=== PATIENT | female | born 1980 | race Caucasian/White ===

== ENCOUNTER 2020-11-25 18:12 | Observation (INO) | payer OTHER ==
[2020-11-25] MEDS ORDERED: SODIUM CHLORIDE 0.9% 1,000 ML IV STA (18:58)
[2020-11-25] MEDS ORDERED: MAG HYDROX/AL HYDROX/SIMETH 30 ML, HYOSCYAMINE ELIXIR 10 ML, LIDOCAINE VISCOUS 2% 10 ML PO STA ×3 (19:08)
--- NOTE | 2020-11-25 19:10 | ED ---
General Adult HPI - General Chief complaint: Abdominal Pain Stated complaint: stomach pain. Time Seen by Provider: 11/25/20 18:56 Source: patient Mode of arrival: ambulatory Limitations: no limitations - History of Present Illness Initial comments: Dictation was produced using EpiEP dictation software. please excuse any grammatical, word or spelling errors. This patient was cared for during a federal and state declared state of emergency secondary to Covid 19 Chief Complaint: 39-year-old male presents with epigastric pain History of Present Illness: 39-year-old female she presents to the emergency department for upper abdominal pain nausea for about 4 days. Patient has history of gastroesophageal reflux disease. The other night she swallowed a Benadryl felt like it got stuck in her lower esophagus. She went to bed and wo ke up the next morning with improvement of her symptoms. She went to the urgent clinic who prescribed her with omeprazole and nausea medications. States that the first morning after taking these medications she felt like she was punched in the gut. Denies any diarrhea. She has history of cholecystectomy. Patient has history of reflux. Patient reports she has history of chronic pain. She sees a pain specialist. She gets prescription for Suboxone every 2 weeks. She states her symptoms resolved completely whenever she takes her Suboxone. She didn't take it today so she can feel it and described it to the emergency medicine doctor. The ROS documented in this emergency department record has been reviewed and confirmed by me. Those systems with pertinent positive or negative responses have been documented in the HPI. All other systems are other negative and/or noncontributory. PHYSICAL EXAM: General Impression: Alert and oriented x3, not in acute distress HEENT: Normocephalic atraumatic, extra-ocular movements intact, pupils equal and reactive to light bilaterally, mucous membranes moist. Cardiovascular: Heart regular rate and rhythm Chest: Able to complete full sentences, no retractions, no tachypnea Abdomen: abdomen soft, non-tender, non-distended, no organomegaly Musculoskeletal: Pulses present and equal in all extremities, no peripheral edema Motor: no focal deficits noted Neurological: CN II-XII grossly intact, no focal motor or sensory deficits noted Skin: Intact with no visualized rashes Psych: Normal affect and mood ED course: 39-year-old female presents with epigastric pain, nausea. Vital signs upon arrival are within acceptable limits. Laboratory evaluation obtained. Leukocytosis of 11.7 with a secondary stress. Metabolic panel is unremarkable. Abdominal labs negative. Lipase negative. No elevated liver enzymes. Urinalysis is unremarkable. Patient reevaluated at bedside at approximately 8:15 PM. She states that she has some slight impr ovement of her symptoms with GI cocktail. Patient states that her pain is so severe that she does not feel comfortable going home because she might come back to the emergency department. She states that her pain does get severe. Patient requests to be admitted with GI consultation for possible upper endoscopy. States that she prefer to be admitted observation as opposed to being discharged with a GI referral. Patient be admitted to [facility] EKG interpretation: Ventricular rate 72, normal sinus rhythm,. Interval 1:30, QRS 82, QTC 418. No WI prolongation, no QTC prolongation, no ST or T-wave changes noted. Overall, this EKG is unremarkable - Related Data Allergies Allergy/AdvReac Type Severity Reaction Status Date / Time sulfamethoxazole Allergy Hallucinati Verified 11/25/20 18:51 [From Bactrim] ons trimethoprim [From Bactrim] Allergy Hallucinati Verified 11/25/20 18:51 ons Review of Systems ROS Statement: Those systems with pertinent positive or pertinent negative responses have been documented in the HPI. ROS Other: All systems not noted in ROS Statement are negative. Past Medical History Past Medical History: GERD/Reflux Additional Past Medical History / Comment(s): migraines History of Any Multi-Drug Resistant Organisms: None Reported Past Surgical History: Breast Surgery, Section, Cholecystectomy, Ear Surgery, Tonsillectomy Additional Past Surgical History / Comment(s): jaw surgery,exp lap, Past Psychological History: Anxiety, Depression Smoking Status: Never smoker Past Alcohol Use History: None Reported Past Drug Use History: None Reported General Exam Limitations: no limitations Course Vital Signs 11/25/20 18:48 Temperature 99.0 F Pulse Rate 93 Respiratory 18 Rate Blood Pressure 145/65 O2 Sat by Pulse 99 Oximetry Medical Decision Making - Lab Data Result diagrams: 11/25/20 19:12 11/25/20 19:12 Lab Results 11/25/20 11/25/20 11/25/20 Range/Units 19:12 19:12 19:12 WBC 11.7 H (3.8-10.6) k/uL RBC 4.96 (3.80-5.40) m/uL Hgb 14.6 (11.4-16.0) gm/dL Hct 44.7 (34.0-46.0) % MCV 90.1 (80.0-100.0) fL MCH 29.4 (25.0-35.0) pg MCHC 32.6 (31.0-37.0) g/dL RDW 12.0 (11.5-15.5) % Plt Count 274 (150-450) k/uL MPV 6.8 Neutrophils % 80 % Lymphocytes % 13 % Monocytes % 5 % Eosinophils % 1 % Basophils % 0 % Neutrophils # 9.3 H (1.3-7.7) k/uL Lymphocytes # 1.5 (1.0-4.8) k/uL Monocytes # 0.5 (0-1.0) k/uL Eosinophils # 0.1 (0-0.7) k/uL Basophils # 0.0 (0-0.2) k/uL Sodium (137-145) mmol/L Potassium (3.5-5.1) mmol/L Chloride (98-107) mmol/L Carbon Dioxide (22-30) mmol/L Anion Gap mmol/L BUN (7-17) mg/dL Creatinine (0.52-1.04) mg/dL Est GFR (CKD-EPI)AfAm (>60 ml/min/1.73 sqM) Est GFR (CKD-EPI)NonAf (>60 ml/min/1.73 sqM) Glucose (74-99) mg/dL Calcium (8.4-10.2) mg/dL Total Bilirubin (0.2-1.3) mg/dL AST (14-36) U/L ALT (4-34) U/L Alkaline Phosphatase (38-126) U/L Total Protein (6.3-8.2) g/dL Albumin (3.5-5.0) g/dL Lipase (23-300) U/L Urine Color Yellow Urine Appearance Cloudy H (Clear) Urine pH 5.5 (5.0-8.0) Ur Specific [place] 1.023 (1.001-1.035) Urine Protein 1+ H (Negative) Urine Glucose (UA) Negative (Negative) Urine Ketones Negative (Negative) Urine Blood Small H (Negative) Urine Nitrite Negative (Negative) Urine Bilirubin Negative (Negative) Urine Urobilinogen 3.0 (<2.0) mg/dL Ur Leukocyte Esterase Trace H (Negative) Urine RBC 5 (0-5) /hpf Urine WBC 5 (0-5) /hpf Ur Squamous Epith Cells 29 H (0-4) /hpf Urine Bacteria Many H (None) /hpf Urine Mucus Many H (None) /hpf Urine HCG, Qual Not Detected (Not Detectd) 11/25/20 Range/Units 19:12 WBC (3.8-10.6) k/uL RBC (3.80-5.40) m/uL Hgb (11.4-16.0) gm/dL Hct (34.0-46.0) % MCV (80.0-100.0) fL MCH (25.0-35.0) pg MCHC (31.0-37.0) g/dL RDW (11.5-15.5) % Plt Count (150-450) k/uL MPV Neutrophils % % Lymphocytes % % Monocytes % % Eosinophils % % Basophils % % Neutrophils # (1.3-7.7) k/uL Lymphocytes # (1.0-4.8) k/uL Monocytes # (0-1.0) k/uL Eosinophils # (0-0.7) k/uL Basophils # (0-0.2) k/uL Sodium 139 (137-145) mmol/L Potassium 3.9 (3.5-5.1) mmol/L Chloride 98 (98-107) mmol/L Carbon Dioxide 30 (22-30) mmol/L Anion Gap 11 mmol/L BUN 11 (7-17) mg/dL Creatinine 0.64 (0.52-1.04) mg/dL Est GFR (CKD-EPI)AfAm >90 (>60 ml/min/1.73 sqM) Est GFR (CKD-EPI)NonAf >90 (>60 ml/min/1.73 sqM) Glucose 145 H (74-99) mg/dL Calcium 9.8 (8.4-10.2) mg/dL Total Bilirubin 0.6 (0.2-1.3) mg/dL AST 29 (14-36) U/L ALT 18 (4-34) U/L Alkaline Phosphatase 56 (38-126) U/L Total Protein 8.2 (6.3-8.2) g/dL Albumin 5.0 (3.5-5.0) g/dL Lipase 63 (23-300) U/L Urine Color Urine Appearance (Clear) Urine pH (5.0-8.0) Ur Specific [place] (1.001-1.035) Urine Protein (Negative) Urine Glucose (UA) (Negative) Urine Ketones (Negative) Urine Blood (Negative) Urine Nitrite (Negative) Urine Bilirubin (Negative) Urine Urobilinogen (<2.0) mg/dL Ur Leukocyte Esterase (Negative) Urine RBC (0-5) /hpf Urine WBC (0-5) /hpf Ur Squamous Epith Cells (0-4) /hpf Urine Bacteria (None) /hpf Urine Mucus (None) /hpf Urine HCG, Qual (Not Detectd) Disposition Clinical Impression: Abdominal pain Disposition: ADMITTED IP TO THIS [facility] Condition: Fair Referrals: None,Stated [Primary Care Provider] - 1-2 days Decision Time: 20:47
[2020-11-25 19:25] LABS: Basophils % (A) 0 %; Eosinophils # (A) 0.1 k/uL (0-0.7); Eosinophils % (A) 1 %; HCT 44.7 % (34.0-46.0); HGB 14.6 gm/dL (11.4-16.0); Lymphocytes # (A) 1.5 k/uL (1.0-4.8); Lymphocytes % (A) 13 %; MCH 29.4 pg (25.0-35.0); MCHC 32.6 g/dL (31.0-37.0); MCV 90.1 fL (80.0-100.0); Mean Platelet Volume 6.8; Monocytes # (A) 0.5 k/uL (0-1.0); Monocytes % (A) 5 %; Neutrophils # (A) 9.3 k/uL (1.3-7.7); Neutrophils % (A) 80 %; Platelet Count 274 k/uL (150-450); RBC 4.96 m/uL (3.80-5.40); WBC 11.7 k/uL (3.8-10.6)
[2020-11-25 19:33] LABS: ALT 18 U/L (4-34); AST 29 U/L (14-36); African American GFR (CKD) >90 (>60 ml/min/1.73 sqM); Alkaline Phosphatase 56 U/L (38-126); Anion Gap 11 mmol/L; Appearance,Urine Cloudy (Clear); Bacteria,Urine Many /hpf; Bilirubin,Urine Negative (Negative); Blood Urea Nitrogen 11 mg/dL (7-17); Blood,Urine Small (Negative); Calcium 9.8 mg/dL (8.4-10.2); Carbon Dioxide 30 mmol/L (22-30); Chloride 98 mmol/L (98-107); Color,Urine Yellow; Glucose 145 mg/dL (74-99); Glucose,Urine (UA) Negative (Negative); Ketones,Urine Negative (Negative); Leukocyte Esterase,Urine Trace (Negative); Lipase 63 U/L (23-300); Mucus,Urine Many /hpf; Nitrite,Urine Negative (Negative); Non-African American GFR(CKD) >90 (>60 ml/min/1.73 sqM); PH, Urine 5.5 (5.0-8.0); Potassium 3.9 mmol/L (3.5-5.1); Protein,Urine 1+ (Negative); RBC,Urine 5 /hpf (0-5); Sodium 139 mmol/L (137-145); Specific Gravity,Urine 1.023 (1.001-1.035); Squamous Epithelial Cell,Urine 29 /hpf (0-4); Total Bilirubin 0.6 mg/dL (0.2-1.3); Total Protein 8.2 g/dL (6.3-8.2); WBC,Urine 5 /hpf (0-5)
[2020-11-25] MEDS ORDERED: NALOXONE 0.4 MG/ML 1 ML VIAL IV PRN (20:44)
[2020-11-25] MEDS ORDERED: ACETAMINOPHEN TAB 325 MG TAB PO PRN (20:44)
[2020-11-25] MEDS ORDERED: ONDANSETRON 4 MG/2 ML VIAL IVP PRN (20:44)
--- NOTE | 2020-11-25 20:53 | XR ---
EXAMINATION TYPE: XR abdomen acute w cxr - 3 views DATE OF EXAM: 11/25/2020 COMPARISON: NONE HISTORY: Pain and nausea TECHNIQUE: Upright chest, upright abdomen, and supine abdominal views obtained. FINDINGS: The lungs are clear and the pleural spaces are negative. The bones and soft tissues are unremarkable. No abnormal gas or fluid collections. There is no evidence for pneumoperitoneum. The bowel gas pattern is unremarkable as there is air throughout nondilated small and large bowel. E xcessive colonic stool is seen throughout the colon. No sizeable air fluid levels. No mass effects are seen. No unusual calcifications. IUD noted. IMPRESSION: Constipation pattern.
[2020-11-25] MEDS ORDERED: PANTOPRAZOLE 40 MG/10 ML VIAL IV SCH (21:00)
[2020-11-25] MEDS: SODIUM CHLORIDE 0.9% 1,000 ML IV SCH (21:22)
[2020-11-25] MEDS ORDERED: SUMAtriptan succinate 6 MG/0.5 ML VIAL SQ ONE (23:00)
[2020-11-25] MEDS: PANTOPRAZOLE 40 MG/10 ML VIAL IVP SCH (23:57)
[2020-11-26] MEDS ORDERED: MAG HYDROX/AL HYDROX/SIMETH 30 ML, HYOSCYAMINE ELIXIR 10 ML, LIDOCAINE VISCOUS 2% 10 ML PO PRN ×3
--- NOTE | 2020-11-26 00:38 | P.HPIM ---
History of Present Illness H&P Date: 11/25/20 Chief Complaint: epigastric abd pain 39 year old female with GERD, and migraine headaches patient comes in with 4 day history of worsening epigastric abd pain, all started after she felt a benadryl pill has stuck in her stomach, since then , her epigastric pain radiating to the back is getting worse and worse, 8/10 in severity , feels like someone punching her stomach, eating makes it worse, no vomiting but feels nauseated, no diarrhea but constipated (chronic) last BM 3 days ago , no bleeding. she admits to long history of GERD, never had EGD, and was treated with sucralafate in the past, she takes a lot of Excedrin due to migraine headaches. she went to urgent care few days ago and was given omeprazol, but with no benefit. she claims that pain goes away when she takes her subaxone that she has been taking for many years, prescribed by her psychiatrist. she also reports history of high blood pressure that is not treated. otherwise she claims to be in good health overall. blood work in the ED unremarkable. lipase negative denies smoking, illicit drugs, or alcohol intake Review of Systems Pertinent positives as noted in HPI. All other systems were reviewed and are negative Past Medical History Past Medical History: GERD/Reflux Additional Past Medical History / Comment(s): migraines History of Any Multi-Drug Resistant Organisms: None Reported Past Surgical History: Breast Surgery, Section, Cholecystectomy, Ear Surgery, Tonsillectomy Additional Past Surgical History / Comment(s): jaw surgery,exp lap, Past Psychological History: Anxiety, Depression Smoking Status: Never smoker Past Alcohol Use History: None Reported Past Drug Use History: None Reported - Past Family History Family Family Medical History: No Reported History Medications and Allergies Home Medications Medication Instructions Recorded Confirmed Type Aspirin/Acetaminophen/Caffeine 2 tab PO Q4H PRN 11/25/20 11/25/20 History [Excedrin Migraine Caplet] Buprenorphine HCl/Naloxone HCl 1 film SL BID 11/25/20 11/25/20 History [Buprenorp-Nalox 8-2 mg Sl Film] Citalopram Hydrobromide [CeleXA] 20 mg PO DAILY 11/25/20 11/25/20 History Ofloxacin 0.3% Otic Soln [Floxin 5 drops RIGHT EAR DAILY 11/25/20 11/25/20 History 0.3% Otic Soln] clonazePAM 1 mg PO TID 11/25/20 11/25/20 History diphenhydrAMINE HCL [Benadryl] 25 mg PO HS PRN 11/25/20 11/25/20 History lamoTRIgine 200 mg PO DAILY 11/25/20 11/25/20 History Allergies Allergy/AdvReac Type Severity Reaction Status Date / Time ondansetron [From Zofran] Allergy Rash/Hives Verified 11/25/20 21:15 sulfamethoxazole Allergy Hallucinati Verified 11/25/20 21:08 [From Bactrim] ons trimethoprim [From Bactrim] Allergy Hallucinati Verified 11/25/20 21:08 ons Physical Exam Vitals: Vital Signs Temp Pulse Resp BP Pulse Ox 11/25/20 21:23 98.9 F 89 18 140/67 98 11/25/20 18:48 99.0 F 93 18 145/65 99 Intake and Output 11/25/20 11/25/20 11/25/20 06:59 14:59 22:59 Other: Weight 63.049 kg Constitutional: No acute distress, conversant, pleasant Eyes: Anicteric sclerae, moist conjunctiva, Pupils equal round reactive to light ENMT: NC/AT Oropharynx clear, no erythema, or exudates Neck: Supple, FROM, no masses, or JVD No carotid bruits No thyromegaly Lungs: Clear to auscultation Clear to percussion Normal respiratory effort, no accessory muscle use Cardiovascular: Heart regular in rate and rhythm, No murmurs, gallops, or rubs No peripheral edema Abdominal: Soft tenderness to palpation of the epigastric region , voluntary guarding , no rebound or rigidity Abdomen moving with respiration Normoactive bowel sounds No hepatomegaly, No splenomegaly No palpable mass umbilical hernia Skin: Normal temperature, tone, texture, turgor No induration No subcutaneous nodules No rash, lesions No ulcers Extremities: No digital cyanosis No clubbing Pedal pulses intact and symmetrical Radial pulses intact and symmetrical No calf tenderness Psychiatric: Alert and oriented to person, place and time Appropriate affect fair judgement Neuro Muscles Strength 5/5 in all 4 extremities Sensation to light touch grossly present throughout Cranial nerves II-XII grossly intact No focal sensory deficits Lymphatics: no palpable cervical or supraclavicular , or inguinal lymph nodes Results CBC & Chem 7: 11/25/20 19:12 11/25/20 19:12 Labs: Abnormal Lab Results - Last 24 Hours (Table) 11/25/20 11/25/20 11/25/20 Range/Units 19:12 19:12 19:12 WBC 11.7 H (3.8-10.6) k/uL Neutrophils # 9.3 H (1.3-7.7) k/uL Glucose 145 H (74-99) mg/dL Urine Appearance Cloudy H (Clear) Urine Protein 1+ H (Negative) Urine Blood Small H (Negative) Ur Leukocyte Esterase Trace H (Negative) Ur Squamous Epith Cells 29 H (0-4) /hpf Urine Bacteria Many H (None) /hpf Urine Mucus Many H (None) /hpf Assessment and Plan Assessment: epigastric abd pain , suspected PUD GERD chronic hypertension untreated plan bowel rest GI consult lipase wnl PPI GI cocktail resume subaxone avoid NSAID sumatriptan for migraine normal saline IVF hydration CODE STATUS:full code DVT prophylaxis: mecanical Discussed with: Patient, ER, RN Anticipated length of stay < than [address]: home A total of 65 minutes was spent on the care of this complex patient more than 50% of the time was spent in counseling and care coordination.
[2020-11-26] MEDS: clonazePAM 1 MG TAB PO SCH ×4 (00:42→21:44)
[2020-11-26] MEDS ORDERED: ACETAMINOPHEN IV (For NPO) 1,000 MG in EMPTY BAG 1 BAG IVPB ONE (03:00)
[2020-11-26] MEDS ORDERED: MORPHINE SULFATE 4 MG/ML SYRINGE IVP PRN (03:08)
[2020-11-26] MEDS ORDERED: MORPHINE SULFATE 2 MG/ML SYRINGE IVP PRN (03:13)
[2020-11-26] MEDS: lamoTRIgine 100 MG TAB PO SCH (09:13)
[2020-11-26] MEDS: PANTOPRAZOLE 40 MG/10 ML VIAL IVP SCH ×2 (09:13→21:44)
[2020-11-26] MEDS: CITALOPRAM HYDROBROMIDE 20 MG TAB PO SCH (09:14)
[2020-11-26] MEDS: SODIUM CHLORIDE 0.9% 1,000 ML IV SCH ×3 (09:14→21:49)
[2020-11-26] MEDS: NALOXONE HCL SUBLINGUAL SCH ×2 (09:47→21:48)
[2020-11-26] MEDS: BUPRENORPHINE HCL SUBLINGUAL SCH ×2 (09:47→21:48)
[2020-11-26] MEDS: [UNRECOGNIZED DRUG - OTHER] SUBLINGUAL SCH ×2 (09:47→21:48)
[2020-11-26] MEDS: BUTALB/APAP/CAFF 50-325-40MG TAB PO PRN ×2 (10:15→16:18)
[2020-11-26] MEDS ORDERED: diphenhydrAMINE 25 MG CAP PO PRN (11:02)
--- NOTE | 2020-11-26 15:52 | P.PN ---
Subjective Progress Note Date: 11/26/20 Principal diagnosis: Epigastric pain Patient still having pain in the epigastric area, she is still having nausea but no vomiting. No fevers or chills. Objective - Vital Signs Vital signs: Vital Signs Temp 98.2 F 11/26/20 15:00 Pulse 69 11/26/20 15:00 Resp 18 11/26/20 15:00 BP 106/69 11/26/20 15:00 Pulse Ox 95 11/26/20 15:00 Intake & Output 11/25/20 11/26/20 11/26/20 18:59 06:59 18:59 Weight 63.049 kg 63.049 kg Other: # Voids 2 - Exam Constitutional: No acute distress, conversant, pleasant Eyes:Anicteric sclerae, moist conjunctiva, no lid-lag, PERRLA, ENMT: Oropharynx clear, no erythema, exudates Neck: Supple, FROM, no masses, or JVD, No carotid bruits, No thyromegaly Lungs: Clear to auscultation, Clear to percussion, Normal respiratory effort, no accessory muscle use Cardiovascular: Heart regular in rate and rhythm, No murmurs, gallops, or rubs, No peripheral edema Abdominal: Soft, epigastric tenderness, no guarding, rebound or rigidity, Normoactive bowel sounds, No hepatomegaly, No splenomegaly, No palpable mass Skin: Normal temperature, tone, texture, turgor, no induration, No subcutaneous nodules, No rash, lesions, No ulcers Extremities: No digital cyanosis, No clubbing, Pedal pulses intact and symmetrical, Radial pulses intact and symmetrical, No calf tenderness Psychiatric: Alert and oriented to person, place and time, appropriate affect, intact judgement Neuro: Muscles Strength 5/5 in all 4 extremities, Sensation to light touch grossly present throughout, Cranial nerves II-XII grossly intact, no focal sensory deficits - Labs CBC & Chem 7: 11/25/20 19:12 11/25/20 19:12 Labs: Abnormal Lab Results - Last 24 Hours (Table) 11/25/20 11/25/20 11/25/20 Range/Units 19:12 19:12 19:12 WBC 11.7 H (3.8-10.6) k/uL Neutrophils # 9.3 H (1.3-7.7) k/uL Glucose 145 H (74-99) mg/dL Urine Appearance Cloudy H (Clear) Urine Protein 1+ H (Negative) Urine Blood Small H (Negative) Ur Leukocyte Esterase Trace H (Negative) Ur Squamous Epith Cells 29 H (0-4) /hpf Urine Bacteria Many H (None) /hpf Urine Mucus Many H (None) /hpf Assessment and Plan Plan: Epigastric abd pain , likely pill-induced esophagitis, rule out PUD Currently nothing by mouth for EGD this a.m. by GI Continue PPI GI cocktail resume subaxone avoid NSAID Fioricet and sumatriptan for migraine as needed, patient tried multiple medications for it in the past, defer management to outpatient basis normal saline IVF hydration GERD chronic hypertension untreated Patient advised to follow-up with her primary care physician as untreated high blood pressure can cause headaches CODE STATUS:full code DVT prophylaxis: mecanical Discussed with: Patient, RN Anticipated discharge tomorrow Anticipated discharge place: home A total of 25 minutes was spent on the care of this complex patient more than 50% of the time was spent in counseling and care coordination.
[2020-11-26] MEDS: SUCRALFATE 1 GM TAB PO SCH ×2 (17:48→21:44)
[2020-11-26 21:43] VITALS: RESP 16
--- NOTE | 2020-11-26 22:59 | CONS ---
CONSULTATION DATE OF DICTATION: November 26, 2020. REQUESTING PHYSICIAN: Dr. Woodruff. REASON FOR CONSULTATION: Severe epigastric pain for the last 5 days duration. HISTORY OF PRESENT ILLNESS: The patient is a 39-year-old pleasant white female admitted to the hospital with severe epigastric pain for the last 4 days duration. The patient states that she has been taking excessive amount of Excedrin for the last few months for severe migraine headaches. She is still having this pain in the epigastric area radiating to the back associated with some nausea but no emesis. The pain continued to progressively get worse and hence came to the emergency room and subsequently admitted to the hospital for further evaluation. She denies similar symptoms in the past. She reports no prior history of peptic ulcer disease. In the emergency room, she had acute abdominal series that have been negative and labs were all within normal limits. PAST MEDICAL HISTORY: Significant for chronic migraine headaches, gastroesophageal reflux disease. PAST SURGICAL HISTORY: Breast surgery, , cholecystectomy, ear surgery and tonsillectomy. SOCIAL HISTORY: No smoking. No alcohol use. FAMILY HISTORY: Unremarkable. MEDICATIONS: Medications at home: Benadryl, Excedrin migraine, Lamictal, Clonazepam, citalopram, buprenorphine. ALLERGIES: ZOFRAN, BACTRIM. REVIEW OF SYSTEMS: CARDIOPULMONARY: No chest pain or shortness of breath. Genitourinary: No dysuria or hematuria. MUSCULOSKELETAL unremarkable. Skin unremarkable. Endocrine unremarkable. Neurology: Severe headaches. Psychiatric: History of anxiety and depression. ENT/VISION: Unremarkable. CONSTITUTIONAL: No recent weight loss. No fever, chills, night sweats. HEMATOLOGY: Unremarkable. PHYSICAL EXAMINATION: She appears comfortable. No apparent distress. Vital signs stable. Blood pressure 106/69, pulse rate 69, temperature 98.2. HEENT examination unremarkable. Conjunctivae pink. Sclerae anicteric. Oral cavity no lesions. Neck no JVD or lymph node enlargement. Chest was clear to auscultation. HEART: Regular rate and rhythm. ABDOMEN: Soft. Bowel sounds are positive. Severe tenderness in the epigastric area. Rest of the abdomen was benign. Extremities: No pedal edema. Skin no rashes. NEUROLOGIC: Alert and oriented x3. No focal deficits. LABS: From yesterday WBC 11.7, hemoglobin 14.6, platelets normal. Rest of the labs are within normal limits. AST/ALT and T-bilirubin and alkaline phosphatase are normal. Urinalysis showed small amount of blood in the urine. IMPRESSION: 1. Acute onset of severe epigastric pain for the last 4 days duration in this patient who has been taking excessive amounts of Excedrin for chronic migraine headaches for the last several months. No prior history of peptic ulcer disease. She does have history of gastroesophageal reflux disease and does not take any medications for it. Most likely we are dealing with peptic ulcer disease, but other upper gastrointestinal etiology needs to be excluded. She has history of cholecystectomy in the past. 2. Chronic migraine headaches. 3. History of anxiety and depression. RECOMMENDATIONS: 1. Continue with Protonix 40 mg twice daily. 2. Start her on clear liquid diet. 3. Carafate 1 gram 4 times daily. 4. We will proceed with EGD tomorrow. Discussed with the patient risks, benefits and complications of the procedure and she is agreeable to it. Thank you for this consultation. KAMINI / HOMER: [id number] /
[2020-11-27] MEDS: SODIUM CHLORIDE 0.9% 1,000 ML IV SCH (04:01)
[2020-11-27] MEDS ORDERED: IV FLUID CONTINUATION 700 ML IV ONE (07:25)
[2020-11-27] MEDS ORDERED: MIDAZOLAM 2 MG/2 ML VIAL ONE (07:26)
[2020-11-27] MEDS ORDERED: LIDOCAINE 1% INJ 10MG/ML (20 ML MDV) ONE (07:26)
[2020-11-27] MEDS ORDERED: PROPOFOL 10 MG/ML 20 ML VIAL IV ONE (07:26)
--- NOTE | 2020-11-27 07:40 | P.PCN ---
Date of Procedure: 11/27/20 Procedure(s) Performed: BRIEF HISTORY: Patient is a 39-year-old, pleasant, female scheduled for an upper endoscopy as a part of evaluation of severe epigastric pain for the last 5 days duration.. PROCEDURE PERFORMED: Esophagogastroduodenoscopy with biopsy. PREOPERATIVE DIAGNOSIS: Severe epigastric pain for the last 4 days duration.. IV sedation per anesthesia. PROCEDURE: After informed consent was obtained, the patient was brought into the endoscopy unit. IV sedation was administered by Anesthesia under continuous monitoring. Initially the Olympus GIF-140 video endoscope was inserted into the mouth. Esophagus intubated without any difficulty. It was gradually advanced into the stomach and duodenum and carefully examined. The bulb and the second part of the duodenum appeared normal. The scope at this time was withdrawn to the stomach, adequately insufflated with air, and upon careful examination, mucosa of the antrum, had mild gastritis and biopsies were done from here. No evidence of peptic ulcer disease. Mucosa of the body, cardia and the fundus appeared normal. The scope was then withdrawn into the esophagus. The GE junction was located at 39 cm from the incisors. There was a small mucosal tear noted at the GE junction. There were 2 superficial erosions at the GE junction consistent with LA grade B reflux esophagitis rest of the biopsies were done from the distal esophagus The esophagus appeared normal. Biopsies were done from the distal esophagus and the patient tolerated the procedure well. IMPRESSION: 1. Antral gastritis. 2. No evidence of peptic ulcer disease 3. 2 superficial erosions at the GE junction consistent with LA grade B reflux esophagitis. RECOMMENDATIONS: The findings of this examination were discussed with the patient . She'll continue Protonix 40 mg twice daily and Carafate 1 g 4 times daily. Diet will be advanced as tolerated.
[2020-11-27 09:19] VITALS: BP 136/85; PULSE 69; TEMP 97.4
[2020-11-27] MEDS: PANTOPRAZOLE 40 MG/10 ML VIAL IVP SCH (09:46)
[2020-11-27] MEDS: CITALOPRAM HYDROBROMIDE 20 MG TAB PO SCH (09:47)
[2020-11-27] MEDS: SUCRALFATE 1 GM TAB PO SCH (09:47)
[2020-11-27] MEDS: clonazePAM 1 MG TAB PO SCH (09:48)
[2020-11-27] MEDS: lamoTRIgine 100 MG TAB PO SCH (09:48)
--- NOTE | 2020-11-27 09:53 | P.DS ---
Providers Date of admission: 11/25/20 20:45 Expected date of discharge: 11/27/20 Attending physician: Eliu Woodruff MD Consults: 11/25/20 20:39 Consult Physician Routine Consulting Provider: Nicolasa Arrington Consult Reason/Comments: epigastric pain Do you want consulting provider notified?: Yes Primary care physician: Stated None Hospital Course: 39 year old female with GERD, and migraine headaches presented to the hospital due to 4 day history of worsening epigastric abd pain, that started after she swallowed some benadryl without drinking much water afterwards. The pain was radiating to the back and was getting worse and worse, 8/10 in severity, it felt like someone was punching her in the stomach, eating made it worse, no vomiting but was nauseated, no diarrhea. No bleeding. She has long history of GERD, never had EGD, and was treated with sucralfate in the past, she takes a lot of Excedrin due to migraine headaches. She went to urgent care few days ago and was given omeprazol, but with no benefit. She stated that pain goes away when she takes her subaxone that she has been taking for many years, prescribed by her psychiatrist. She also reports history of high blood pressure that is not treated. Basic blood work in the ED was unremarkable. Lipase negative. Patient was admitted, was started on IV fluids. She was also started on IV Protonix. Pill induced esophagitis with suspected as well as reflux esophagitis. Patient was seen by gastroenterology who did an upper endoscopy today that showed reflux esophagitis, antral gastritis. PPI and Carafate recommended for long-term treatment. Patient was advised in regards to acid reflux lifestyle changes. She was told to avoid stomach irritating foods. Patient was also told to follow-up with her primary care physician as untreated high blood pressure can cause frequent headaches. She was advised to follow-up with her primary care physician to seek chronic treatment for her migraines and to minimize her intake of Fioricet and Excedrin. Patient is currently stable for discharge. She will be discharged home in a stable condition. Patient Condition at Discharge: Fair Plan - Discharge Summary Discharge Rx Participant: Yes New Discharge Prescriptions: New Sucralfate [Carafate] 1 gm PO QID 30 Days #120 tab Pantoprazole Sodium [Protonix] 40 mg PO BID 30 Days #60 tablet. Continue diphenhydrAMINE HCL [Benadryl] 25 mg PO HS PRN PRN Reason: Migraine Headache Ofloxacin 0.3% Otic Soln [Floxin 0.3% Otic Soln] 5 drops RIGHT EAR DAILY lamoTRIgine 200 mg PO DAILY clonazePAM 1 mg PO TID Citalopram Hydrobromide [CeleXA] 20 mg PO DAILY Buprenorphine HCl/Naloxone HCl [Buprenorp-Nalox 8-2 mg Sl Film] 1 film SL BID Discontinued Aspirin/Acetaminophen/Caffeine [Excedrin Migraine Caplet] 2 tab PO Q4H PRN PRN Reason: Migraine Headache Discharge Medication List Buprenorphine HCl/Naloxone HCl [Buprenorp-Nalox 8-2 mg Sl Film] 1 film SL BID 11/25/20 [History] Citalopram Hydrobromide [CeleXA] 20 mg PO DAILY 11/25/20 [History] Ofloxacin 0.3% Otic Soln [Floxin 0.3% Otic Soln] 5 drops RIGHT EAR DAILY 11/25/20 [History] clonazePAM 1 mg PO TID 11/25/20 [History] diphenhydrAMINE HCL [Benadryl] 25 mg PO HS PRN 11/25/20 [History] lamoTRIgine 200 mg PO DAILY 11/25/20 [History] Pantoprazole Sodium [Protonix] 40 mg PO BID 30 Days #60 tablet. 11/27/20 [Rx] Sucralfate [Carafate] 1 gm PO QID 30 Days #120 tab 11/27/20 [Rx] Follow up Appointment(s)/Referral(s): None,Stated [Primary Care Provider] - 1-2 days Activity/Diet/Wound Care/Special Instructions: 1 SUDAFED PILL BEING STORED IN PHARMACY. RETURN TO PATIENT BEFORE D/C.
[2020-11-27] MEDS: BUPRENORPHINE HCL SUBLINGUAL SCH (13:57)
[2020-11-27] MEDS: NALOXONE HCL SUBLINGUAL SCH (13:57)
[2020-11-27] MEDS: [UNRECOGNIZED DRUG - OTHER] SUBLINGUAL SCH (13:57)
== END 2020-11-27 13:33 | disposition home or self-care (01) ==
LOC: EC 18:12 → 6PED 20:45
PROVIDERS: ADMIT Internal Medicine; ATTEND Internal Medicine
DX: K29.50 Unspecified chronic gastritis without bleeding (principal); K21.00 Gastro-esophageal reflux disease with esophagitis, without bleeding; K22.10 Ulcer of esophagus without bleeding; G89.29 Other chronic pain; G43.909 Migraine, unspecified, not intractable, without status migrainosus; F41.9 Anxiety disorder, unspecified; F32.9 Major depressive disorder, single episode, unspecified; I10 Essential (primary) hypertension; K59.09 Other constipation; Z90.49 Acquired absence of other specified parts of digestive tract; Z79.899 Other long term (current) drug therapy; Z88.2 Allergy status to sulfonamides; Z98.890 Other specified postprocedural states; Z90.89 Acquired absence of other organs; Z88.8 Allergy status to other drugs, medicaments and biological substances
CPT/HCPCS: 96375 ×2; 96376; 96374; 99285; 36415; 93005; 88305; 80053; 83690; 85025; 81001; 81025; 74022; 43239; G0378 ×3; J2250; J2405; J2001; J0131; J2704; C9113 ×3

== ENCOUNTER 2021-09-21 18:54 | Emergency (ER) | payer OTHER ==
[2021-09-21] MEDS ORDERED: KETOROLAC 15 MG/ML 1 ML VIAL IVP STA ×2 (21:10→22:52)
[2021-09-21] MEDS ORDERED: METOCLOPRAMIDE 5 MG/ML 2 ML VIAL IVP STA (21:10)
[2021-09-21] MEDS ORDERED: diphenhydrAMINE 50 MG/ML 1 ML VIAL IVP STA (21:10)
[2021-09-21] MEDS ORDERED: SODIUM CHLORIDE 0.9% 1,000 ML IV STA ×2 (21:10→22:25)
--- NOTE | 2021-09-21 21:19 | ED ---
General Adult HPI - General Chief complaint: Headache Stated complaint: Headache/Nausea/Vomiting Time Seen by Provider: 09/21/21 20:58 Source: patient, RN notes reviewed Mode of arrival: ambulatory Limitations: no limitations - History of Present Illness Initial comments: 40-year-old female with a history of migraines, presents to the emergency Department with complaints of frontal headache, onset yesterday. Patient states symptoms are accompanied by nausea, vomiting, and dizziness. Patient states she took Tylenol, Motrin, and Excedrin yesterday; one dose of Benadryl today, but has had no relief of symptoms. States she developed sinus pressure and right ear pain this afternoon. When asked about history of headaches, patient states this is one of the worst headache she has ever had. She describes this headache as a pressure sensation originating in the front of her head and wrapping around to the back. Patient also reports mild sensitivity to light, sound, and movement. Patient denies fever, chills, visual changes, chest pain, or difficulty breathing. States she has been unable to tolerate anything by mouth. - Related Data Home Medications Medication Instructions Recorded Confirmed Buprenorphine HCl/Naloxone HCl 1 film SL BID 11/25/20 11/25/20 [Buprenorphine-Nalox 8-2Mg Film] Citalopram Hydrobromide [CeleXA] 20 mg PO DAILY 11/25/20 11/25/20 Ofloxacin 0.3% Otic Soln [Floxin 5 drops RIGHT EAR DAILY 11/25/20 11/25/20 0.3% Otic Soln] clonazePAM 1 mg PO TID 11/25/20 11/25/20 diphenhydrAMINE HCL [Benadryl] 25 mg PO HS PRN 11/25/20 11/25/20 lamoTRIgine 200 mg PO DAILY 11/25/20 11/25/20 Previous Rx's Medication Instructions Recorded Pantoprazole Sodium [Protonix] 40 mg PO BID 30 Days #60 tablet. 11/27/20 Sucralfate [Carafate] 1 gm PO QID 30 Days #120 tab 11/27/20 Allergies Allergy/AdvReac Type Severity Reaction Status Date / Time sulfamethoxazole Allergy Hallucinati Verified 09/21/21 20:29 [From Bactrim] ons trimethoprim [From Bactrim] Allergy Hallucinati Verified 09/21/21 20:29 ons Review of Systems ROS Statement: Those systems with pertinent positive or pertinent negative responses have been documented in the HPI. ROS Other: All systems not noted in ROS Statement are negative. Past Medical History Past Medical History: GERD/Reflux Additional Past Medical History / Comment(s): migraines History of Any Multi-Drug Resistant Organisms: None Reported Past Surgical History: Breast Surgery, Section, Cholecystectomy, Ear Surgery, Tonsillectomy Additional Past Surgical History / Comment(s): jaw surgery,exp lap, Past Anesthesia/Blood Transfusion Reactions: No Reported Reaction Past Psychological History: Anxiety, Bipolar, Depression Smoking Status: Never smoker Past Alcohol Use History: None Reported Past Drug Use History: None Reported - Past Family History Family Family Medical History: No Reported History General Exam Limitations: no limitations (Well-developed, well-nourished female in no acute distress. Initial temperature 100.5, pulse 103, respirations 20, blood pressure 141/89, pulse ox 96% on room air. Patient is noted to have a heating blanket spread across her during exam- repeat temperature 99.3. ) General appearance: alert, in no apparent distress Head exam: Present: atraumatic, normocephalic, normal inspection Eye exam: Present: normal appearance, PERRL, EOMI. Absent: scleral icterus, conjunctival injection, periorbital swelling Pupils: Present: normal accommodation ENT exam: Present: normal exam, normal oropharynx, mucous membranes moist, TM's normal bilaterally Neck exam: Present: normal inspection, full ROM. Absent: tenderness, meningismus, lymphadenopathy Respiratory exam: Present: normal lung sounds bilaterally. Absent: respiratory distress, wheezes, rales, rhonchi, stridor Cardiovascular Exam: Present: regular rate, normal rhythm, normal heart sounds. Absent: systolic murmur, diastolic murmur, rubs, gallop, clicks GI/Abdominal exam: Present: soft, normal bowel sounds. Absent: distended, tenderness, guarding, rebound, rigid Back exam: Present: normal inspection, full ROM. Absent: paraspinal tenderness, vertebral tenderness Neurological exam: Present: alert, oriented X3, CN II-XII intact Expanded Patient oriented to: Present: person, place, time Speech: Present: fluid speech Cranial nerves: EOM's Intact: Normal Motor strength exam: RUE: 5, LUE: 5, RLE: 5, LLE: 5 Eye Response: (4) open spontaneously Motor Response: (6) obeys commands Verbal Response: (5) oriented Psychiatric exam: Present: normal affect, normal mood Skin exam: Present: warm, dry, intact, normal color. Absent: rash Course Vital Signs 09/21/21 09/22/21 20:29 00:01 Temperature 100.5 F H 98.7 F Pulse Rate 103 H 89 Respiratory 20 19 Rate Blood Pressure 141/89 164/108 O2 Sat by Pulse 96 98 Oximetry - Reevaluation(s) Reevaluation #1: 09/21/21 22:53 Patient states she had brief reprieve from her headache after the medications were given, but states the headache has since returned and reports feeling restless. Discussed that this was likely due to the side effects of Reglan therefore an additional liter of fluid was ordered and another dose of Toradol. Medical Decision Making - Medical Decision Making 40-year-old female with a history of migraines was evaluated for complaints of frontal headache accompanied by nausea, vomiting, and photophobia. She is neurologically intact, but does express that this is one of the worst headaches she has ever experienced therefore CT of the brain was obtained with no acute findings. Migraine cocktail was given with improvement. Patient's initial temperature is elevated; discussed the option of Covid testing for possible fever source, but patient refused. Elevated temperature could also be attributed to the fact that patient was utilizing a heating blanket which she was asked to turn off. Temp recheck was within normal limits. This patient's case was discussed with my attending DR. Solitario. Patient will be discharged home to follow up with her primary care provider. Return parameters were discussed in detail. Patient verbalizes understanding and agrees with this plan. - Lab Data Lab Results 09/21/21 09/21/21 Range/Units 23:37 23:37 Urine Color Light Yellow Urine Appearance Clear (Clear) Urine pH 6.0 (5.0-8.0) Ur Specific [place] 1.009 (1.001-1.035) Urine Protein Negative (Negative) Urine Glucose (UA) Negative (Negative) Urine Ketones 1+ H (Negative) Urine Blood Negative (Negative) Urine Nitrite Negative (Negative) Urine Bilirubin Negative (Negative) Urine Urobilinogen <2.0 (<2.0) mg/dL Ur Leukocyte Esterase Negative (Negative) Urine HCG, Qual Not Detected (Not Detectd) Disposition Clinical Impression: Migraine headache Disposition: HOME SELF-CARE Condition: Stable Instructions (If sedation given, give patient instructions): Migraine Headache (ED) Additional Instructions: Rest. Avoid known triggers. Follow-up with your primary care provider for a recheck 1-2 days. Return to the emergency department with any new, worsening, or concerning symptoms. Is patient prescribed a controlled substance at d/c from ED?: No Referrals: Brandon Levi DO [Primary Care Provider] - 1-2 days Time of Disposition: 00:08
--- NOTE | 2021-09-21 22:10 | CT ---
EXAMINATION TYPE: CT brain wo con DATE OF EXAM: 09/21/2021 COMPARISON: None HISTORY: MCALLISTER, dizzy CT DLP: 1076.4 mGycm Automated exposure control for dose reduction was used. Ventricles and sulci appear normal. There is no mass effect nor midline shift. There is no sign of in tracranial hemorrhage. The calvarium is intact. Skull base is intact. There is normal aeration of the mastoid sinuses. IMPRESSION: Negative unenhanced head CT scan.
[2021-09-21 23:56] LABS: Appearance,Urine Clear (Clear); Bilirubin,Urine Negative (Negative); Blood,Urine Negative (Negative); Color,Urine Light Yellow; Glucose,Urine (UA) Negative (Negative); Ketones,Urine 1+ (Negative); Leukocyte Esterase,Urine Negative (Negative); Nitrite,Urine Negative (Negative); Protein,Urine Negative (Negative); Specific Gravity,Urine 1.009 (1.001-1.035); Urobilinogen,Urine <2.0 mg/dL (<2.0)
[2021-09-22 00:02] VITALS: BP 164/108; PULSE 89; RESP 19; TEMP 98.7
== END 2021-09-22 00:15 | disposition home or self-care (01) ==
LOC: EC 18:54
DX: G43.909 Migraine, unspecified, not intractable, without status migrainosus (principal); K21.9 Gastro-esophageal reflux disease without esophagitis; F41.9 Anxiety disorder, unspecified; F31.9 Bipolar disorder, unspecified; Z88.1 Allergy status to other antibiotic agents; Z88.2 Allergy status to sulfonamides; Z90.49 Acquired absence of other specified parts of digestive tract
CPT/HCPCS: 99284; 96374; 96375 ×2; 96376; 96361 ×3; 81003; 81025; 70450; J1200; J2765; J1885

== ENCOUNTER 2021-09-22 15:29 | Emergency (ER) | payer OTHER ==
[2021-09-22 15:43] VITALS: PULSE 95; RESP 18; TEMP 98.1
[2021-09-22] MEDS ORDERED: KETOROLAC 15 MG/ML 1 ML VIAL IM STA (17:38)
--- NOTE | 2021-09-22 17:48 | ED ---
Recheck HPI - General Chief Complaint: Recheck/Abnormal Lab/Rx Stated Complaint: Med Refill Time Seen by Provider: 09/22/21 16:54 Source: patient, RN notes reviewed, old records reviewed Mode of arrival: ambulatory Limitations: no limitations - History of Present Illness Initial Comments: Patient is a 40-year-old female presenting to the emergency department requesting medication refill. Patient states she missed her last appointment with her doctor and now that he is out of town, she has no way to refill her medications. Her medications include Suboxone and Klonopin. She states she has tried to call the office and they are not helping her. She is not sure what to do. She denies any other specific complaints today, no chest pain or shortness of breath, no fevers or chills. Patient was seen yesterday for a headache. She states this headache is better but is requesting something for her headache today as well. Patient denies any neck pain. She denies being . She has no further complaints. - Related Data Home Medications Medication Instructions Recorded Confirmed Buprenorphine HCl/Naloxone HCl 1 film SL BID 11/25/20 11/25/20 [Buprenorphine-Nalox 8-2Mg Film] Citalopram Hydrobromide [CeleXA] 20 mg PO DAILY 11/25/20 11/25/20 Ofloxacin 0.3% Otic Soln [Floxin 5 drops RIGHT EAR DAILY 11/25/20 11/25/20 0.3% Otic Soln] clonazePAM 1 mg PO TID 11/25/20 11/25/20 diphenhydrAMINE HCL [Benadryl] 25 mg PO HS PRN 11/25/20 11/25/20 lamoTRIgine 200 mg PO DAILY 11/25/20 11/25/20 Previous Rx's Medication Instructions Recorded Pantoprazole Sodium [Protonix] 40 mg PO BID 30 Days #60 tablet. 11/27/20 Sucralfate [Carafate] 1 gm PO QID 30 Days #120 tab 11/27/20 clonazePAM [KlonoPIN] 1 mg PO TID PRN #12 tablet 09/22/21 Allergies Allergy/AdvReac Type Severity Reaction Status Date / Time sulfamethoxazole Allergy Hallucinati Verified 09/22/21 15:43 [From Bactrim] ons trimethoprim [From Bactrim] Allergy Hallucinati Verified 09/22/21 15:43 ons Review of Systems ROS Statement: Those systems with pertinent positive or pertinent negative responses have been documented in the HPI. ROS Other: All systems not noted in ROS Statement are negative. Past Medical History Past Medical History: GERD/Reflux Additional Past Medical History / Comment(s): migraines History of Any Multi-Drug Resistant Organisms: None Reported Past Surgical History: Breast Surgery, Section, Cholecystectomy, Ear Surgery, Tonsillectomy Additional Past Surgical History / Comment(s): jaw surgery,exp lap, Past Anesthesia/Blood Transfusion Reactions: No Reported Reaction Past Psychological History: Anxiety, Bipolar, Depression Smoking Status: Never smoker Past Alcohol Use History: None Reported Past Drug Use History: None Reported - Past Family History Family Family Medical History: No Reported History General Exam - General Exam Comments Initial Comments: GENERAL: Patient is well-developed and well-nourished. Patient is nontoxic and in no acute distress. HEAD: Atraumatic, normocephalic. EYES: Pupils equal round and reactive to light, extraocular movements intact, sclera anicteric, conjunctiva are normal. Eyelids were unremarkable. ENT: Moist mucous membranes. NECK: Normal range of motion, supple without lymphadenopathy or JVD. LUNGS: Unlabored respirations. Breath sounds clear to auscultation bilaterally and equal. No wheezes rales or rhonchi. HEART: Regular rate and rhythm without murmurs, rubs or gallops. MUSCULOSKELETAL: Normal extremities with adequate strength and normal range of motion, no pitting or edema. No clubbing or cyanosis. NEUROLOGICAL: Patient is alert and oriented x 3. Motor and sensory are also intact. Cranial nerves II through XII grossly intact. Symmetrical smile. Normal speech, normal gait. PSYCH: Normal mood, normal affect. SKIN: Warm, Dry, normal turgor, no rashes or lesions noted. Limitations: no limitations Course Vital Signs 09/22/21 09/22/21 09/22/21 15:41 19:30 19:31 Temperature 98.1 F 98.1 F Pulse Rate 95 95 Respiratory 18 18 18 Rate Blood Pressure 189/102 171/107 O2 Sat by Pulse 97 97 Oximetry Medical Decision Making - Medical Decision Making Patient is a 40-year-old female here requesting a medication refill of her Klonopin and Suboxone. She states she missed her doctor's appointment and now her doctor is out of town and she has no way to get a hold of him. She is also requested something for her mild headache that she was seen here yesterday for. Vitals are stable, she is no acute findings exam. I discussed with patient that I am not able to prescribe Suboxone as you have to have a special license for this. I will give her a small course of Klonopin until she is able to see her doctor again. I gave her a dose of Toradol today. Patient does have hypertension here, recommended seeing her primary care regarding this. She states she is very anxious and upset that she is not to get her medication. She is agreeable to this plan of care and she is stable for discharge. Disposition Clinical Impression: Encounter for medication refill, Headache Disposition: HOME SELF-CARE Condition: Stable Instructions (If sedation given, give patient instructions): Medicine Refill (ED) Additional Instructions: Please return to the Emergency Department if symptoms worsen or any other concerns. Please follow-up with your primary care physician. Prescriptions: clonazePAM [KlonoPIN] 1 mg PO TID PRN #12 tablet PRN Reason: Anxiety Is patient prescribed a controlled substance at d/c from ED?: Yes When asked, does pt state using other controlled substances?: No If prescribed controlled substance>3 days was MAPS reviewed?: Prescribed <3 Days Referrals: None,Stated [Primary Care Provider] - 1-2 days Time of Disposition: 17:48
[2021-09-22 19:31] VITALS: BP 171/107
== END 2021-09-22 19:32 | disposition home or self-care (01) ==
LOC: EC 15:29
DX: R51.9 Headache, unspecified (principal); Z76.0 Encounter for issue of repeat prescription; F31.9 Bipolar disorder, unspecified; F41.9 Anxiety disorder, unspecified; K21.9 Gastro-esophageal reflux disease without esophagitis; Z79.899 Other long term (current) drug therapy; Z88.2 Allergy status to sulfonamides
CPT/HCPCS: 96372; 99284; J1885

== ENCOUNTER → 2022-06-22 | Outpatient (CLI) | payer OTHER ==
[2022-06-22 14:35] LABS: Basophils # (A) 0.02 X 10*3/uL (0.00-0.10); Basophils % (A) 0.3 %; Eosinophils # (A) 0.27 X 10*3/uL (0.04-0.35); HCT 40.6 % (37.2-46.3); HGB 12.5 g/dL (12.0-15.0); Immature Grans, Automated 0.3 %; MCH 28.4 pg (27.0-32.0); MCHC 30.8 g/dL (32.0-37.0); MCV 92.3 fL (80.0-97.0); Mean Platelet Volume 9.6 fL (9.5-12.2); Monocytes % (A) 5.9 %; NRBC Per 100 WBC 0 /100 WBCS (0.0-0.0); Neutrophils % (A) 64.5 %; Platelet Count 295 X 10*3/uL (140-440); WBC 6.81 X 10*3/uL (4.50-10.00)
[2022-06-22 15:35] LABS: ALT 13 U/L (8-44); AST 16 U/L (13-35); African American GFR (CKD) 126.4 (60.0-200.0); Albumin 4.5 g/dL (3.8-4.9); Albumin/Globulin Ratio 2.15 (1.60-3.17); Alkaline Phosphatase 50 U/L (41-126); BUN/Creat Ratio 21.58 Ratio (12.00-20.00); Blood Urea Nitrogen 14.5 mg/dL (9.0-27.0); Calcium 9.8 mg/dL (8.7-10.3); Carbon Dioxide 30.1 mmol/L (20.0-27.5); Chloride 101 mmol/L (96-109); Chol/HDL Ratio 4.79 Ratio; Globulin 2.1 g/dL (1.6-3.3); Glucose 119 mg/dL (70-110); Non-African American GFR(CKD) 109.1 (60.0-200.0); Potassium 4.1 mmol/L (3.5-5.5); Sodium 141 mmol/L (135-145); Total Bilirubin <0.15 mg/dL (0.30-1.20); Total Protein 6.6 g/dL (6.2-8.2)
[2022-06-23 00:23] LABS: Urine Alcohol Negative (Negative); Urine Barbiturate Negative (Negative); Urine Cocaine Negative (Negative); Urine Methadone Negative (Negative); Urine Opiates Negative (Negative); Urine Phencyclidine Negative (Negative)
== END | disposition home or self-care (01) ==
LOC: LABWHC1 09:39
PROVIDERS: ATTEND Psychiatry & Neurology Psychiatry
DX: Z51.89 Encounter for other specified aftercare (principal); E88.1 Lipodystrophy, not elsewhere classified; T50.905A Adverse effect of unspecified drugs, medicaments and biological substances, initial encounter
CPT/HCPCS: 36415; 80053; 80061; 80306; 82306; 82607; 83036; 84439; 84443; 84481; 85025

== ENCOUNTER → 2023-06-29 | Outpatient (CLI) | payer BC | END | disposition home or self-care (01) | LOC: LABWHC1 14:58 | PROVIDERS: ATTEND Psychiatry & Neurology Psychiatry | DX: Z51.89 Encounter for other specified aftercare (principal) | CPT/HCPCS: 80307; 80377 ==

== ENCOUNTER → 2023-07-18 | Outpatient (CLI) | payer BC ==
--- NOTE | 2023-07-18 23:05 | MR ---
EXAMINATION TYPE: MR knee RT wo con DATE OF EXAM: 07/18/2023 COMPARISON: Outside right knee x-ray June 19, 2023 HISTORY: Rt knee pain with locking and swelling TECHNIQUE: Multiplanar, multisequence images of the knee is performed without IV contrast. FINDINGS: MEDIAL MENISCUS: Anterior and posterior horns are intact without tear. LATERAL MENISCUS: Anterior and posterior horns are intact without tear. CRUCIATE LIGAMENTS: The anterior and posterior cruciate ligaments are intact and unremarkable. COLLATERAL LIGAMENTS: The medial collateral ligament and lateral collateral ligament complex are inta ct and unremarkable. EXTENSOR MECHANISM: Visualized quadriceps and patellar tendons are intact. EFFUSION: No significant suprapatellar joint effusion. POPLITEAL CYST: No popliteal/negro cyst. TRICOMPARTMENT SPACES: Tricompartmental joint spaces are preserved. No significant spurring is seen. CARTILAGE: Tricompartmental articular cartilage is maintained. BONE MARROW SIGNAL: No focal abnormal marrow signal is appreciated. OTHER: No additional significant abnormality is appreciated. IMPRESSION: No meniscal or ligamentous tear is seen.
== END | disposition home or self-care (01) ==
LOC: RADMRIMAIN 13:04
PROVIDERS: ATTEND Orthopaedic Surgery
DX: M25.561 Pain in right knee (principal); R60.0 Localized edema

== ENCOUNTER → 2024-04-02 | Outpatient (CLI) | payer BC ==
[2024-04-03 18:36] LABS: Comprehensive Drug Screen Ur SeeBelow; Creatinine, Random Urine 173 mg/dL
== END | disposition home or self-care (01) ==
LOC: LABWHC1 13:17
PROVIDERS: ATTEND Psychiatry & Neurology Psychiatry
DX: Z51.89 Encounter for other specified aftercare (principal); T50.905A Adverse effect of unspecified drugs, medicaments and biological substances, initial encounter
CPT/HCPCS: 80307; 80377

== ENCOUNTER 2024-09-28 15:57 | Emergency (ER) | payer BC ==
[2024-09-28 16:06] VITALS: RESP 20; TEMP 98.3
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
[2024-09-28] MEDS: CEPHALEXIN 500 MG CAP PO STA (17:58)
[2024-09-28 18:06] VITALS: BP 154/96; PULSE 113
[2024-09-28] MEDS: IBUPROFEN 800 MG TAB PO STA (18:10)
[2024-09-28] MEDS: ACETAMINOPHEN TAB 325 MG TAB PO STA (18:10)
== END 2024-09-28 18:12 | disposition home or self-care (01) ==
LOC: EC 15:57
DX: S02.2XXA Fracture of nasal bones, initial encounter for closed fracture (principal); Z88.1 Allergy status to other antibiotic agents; Z88.2 Allergy status to sulfonamides; X58.XXXA Exposure to other specified factors, initial encounter
CPT/HCPCS: 70450; 70486; 99285

== ENCOUNTER → 2024-12-16 | Outpatient (CLI) | payer BC ==
[2024-12-16 19:31] LABS: Basophils # (A) 0.03 X 10*3/uL (0.00-0.10); Basophils % (A) 0.5 %; Eosinophils # (A) 0.08 X 10*3/uL (0.04-0.35); Eosinophils % (A) 1.4 %; HCT 41.8 % (37.2-46.3); HGB 13.5 g/dL (12.0-15.0); Lymphocytes # (A) 1.24 X 10*3/uL (0.90-5.00); Lymphocytes % (A) 22.5 %; MCH 30.5 pg (27.0-32.0); MCHC 32.3 g/dL (32.0-37.0); MCV 94.6 FL (80.0-97.0); Mean Platelet Volume 9.3 FL (9.5-12.2); Monocytes # (A) 0.32 X 10*3/uL (0.20-1.00); Monocytes % (A) 5.8 %; NRBC Per 100 WBC 0 X 10*3/uL (0.00-0.01); Neutrophils # (A) 3.83 X 10*3/uL (1.80-7.70); Neutrophils % (A) 69.4 %; Platelet Count 315 X 10*3/uL (140-440); RBC 4.42 X 10*6/uL (4.10-5.20); RDW 11.6 % (11.5-14.5); WBC 5.52 X 10*3/uL (4.50-10.00)
[2024-12-16 20:00] LABS: Anion Gap 10.3 mmol/L (4.00-12.00); Carbon Dioxide 28.7 mmol/L (21.6-31.8)
== END | disposition home or self-care (01) ==
LOC: LABWHC1 15:53
PROVIDERS: ATTEND Orthopaedic Surgery
DX: Z01.812 Encounter for preprocedural laboratory examination (principal); M23.91 Unspecified internal derangement of right knee
CPT/HCPCS: 36415; 80051; 85025

== ENCOUNTER 2025-01-15 11:35 | Day surgery (SDC) | payer BC ==
[2025-01-12 18:17] VITALS: BMI 19.3
--- NOTE | 2025-01-14 20:05 | HP ---
HISTORY AND PHYSICAL DATE OF SURGERY: 01/15/2025. Celina Velasquez is a 44-year-old patient seen with progressive right knee pain. After having treatment options discussed, she elected to proceed with right knee arthroscopy. Consent regarding procedure was obtained. Cardiac clearance was provided by Dr. Covarrubias. PAST MEDICAL HISTORY: Cardiovascular disease, hypertension. PAST SURGICAL HISTORY: Noncontributory. DAILY MEDICATIONS: 1. Aspirin. 2. Carvedilol. 3. Crestor. 4. Losartan. 5. Nitroglycerin as needed. ALLERGIES: None reported. SOCIAL HISTORY: She denies tobacco use. PHYSICAL EVALUATION OF THE RIGHT KNEE: Range of motion is 0 to 130 degrees. There is a mild effusion present. Tenderness in the medial joint line; tenderness in the lateral joint line; positive medial Eros's. Positive lateral Eros's. Ligaments stable. Hip rotation without pain. Distal neurovascular exam intact. IMAGING STUDIES: Right knee radiographs revealed mild osteoarthritis; MRI of the right knee failed to reveal any significant abnormality. IMPRESSION: Internal derangement of right knee with medial meniscal tear versus osteochondral tear. PLAN: Right knee arthroscopy with partial medial meniscectomy versus chondroplasty and debridement. MMODL / IJN: [id number] /
[~2025-01-15 11:35] MED LIST: LIDOCAINE 1% (10MG/ML) FOR IV START INTRADERMA PRN; MIDAZOLAM 2 MG/2 ML VIAL IV PRN
[2025-01-15] MEDS: LACTATED RINGERS 1,000 ML IV SCH (12:34)
[2025-01-15] MEDS: ONDANSETRON 4 MG/2 ML VIAL IVP ONE (12:34)
[2025-01-15] MEDS: DEXAMETHASONE SOD PHOSPHATE 4 MG/ML 1 ML VIAL IV ONE (12:34)
[2025-01-15] MEDS: IV FLUID CONTINUATION 1,000 ML IV ONE (12:41)
[2025-01-15] MEDS: BUPIVACAINE (PF) 0.25% 30 ML VIAL SQ ONE ×2 (12:45→13:35)
[2025-01-15] MEDS ORDERED: MIDAZOLAM 2 MG/2 ML VIAL ONE (13:08)
[2025-01-15] MEDS ORDERED: LIDOCAINE 1% INJ 10MG/ML (20 ML MDV) ONE (13:08)
[2025-01-15] MEDS ORDERED: fentaNYL (PF) 50 MCG/ML 2 ML AMP ONE (13:08)
[2025-01-15] MEDS ORDERED: PROPOFOL 10 MG/ML 20 ML VIAL IV ONE (13:08)
[2025-01-15] MEDS ORDERED: PHENYLEPHRINE-0.9% NACL SYG 1,000 MCG/10 ML SYRINGE ONE (13:08)
--- NOTE | 2025-01-15 14:03 | P.OP ---
Date of Procedure: 01/15/25 Preoperative Diagnosis: Internal derangement right knee Postoperative Diagnosis: 1. Tear medial and lateral meniscus right knee 2. Reactive synovitis medial, lateral and suprapatellar compartments right knee 3. 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 Arthroscopic partial medial and lateral meniscectomy right knee 2. Arthroscopic partial synovectomy medial, lateral and suprapatellar compartments right knee 3. Arthroscopic chondroplasty medial femoral condyle right knee Anesthesia: VALARIEA, local Surgeon: Eric Echevarria Estimated Blood Loss (ml): 4 Pathology: none sent Condition: stable Disposition: PACU Indications for Procedure: 44-year-old patient seen with progressive right knee pain. After having treatment options discussed, she elected to proceed with arthroscopy. Operative Findings: See description of procedure Description of Procedure: Patient was taken to the operative suite. Patient underwent a general anesthetic by the department of anesthesia. Patient was given preoperative antibiotics. The right lower extremity was placed in a well-padded arthroscopic leg baltazar. The right leg was prepped and draped in the normal sterile orthopedic fashion. A lateral parapatellar and suprapatellar incision was made. Trochars were inserted. Arthroscopy was initiated. Suprapatellar pouch revealed diffuse thick reactive synovitis. The patellofemoral joint appeared to articulate congruently. There there was grade 3/4 chondromalacia changes of the patella mainly involving the inferior pole. There were no significant osteochondral tears present the scope was guided into the medial gutter. No loose bodies or plica were identified. The scope was then guided into the medial compartment. A medial parapatellar incision was made. Trocar inserted f ollowed by probe. There was a radial tear posterior medial meniscus. There was an area of grade I/II chondromalacia medial femoral condyle with some osteochondral flap tears. There was thick reactive synovitis anteriorly. I performed a partial medial meniscectomy getting down to stable meniscal tissue. I performed a chondroplasty of the medial femoral condyle getting down to stable osteochondral tissue. I performed a partial synovectomy decompressing the reactive synovitis. The residual meniscus was stable. The residual osteochondral surface of the medial femoral condyle was stable. There was good decompression of the synovitis. Scope and probe were then guided into the intercondylar notch. Cruciates were identified, probed and found to be stable. The scope and probe were then guided into lateral compartment. There was a radial tear mid body lateral meniscus. There was no chondromalacia present lateral compartment. There was some reactive synovitis anteriorly. I performed a partial lateral meniscectomy getting down to stable meniscal tissue. I performed a partial synovectomy decompressing the reactive synovitis. The residual meniscus was stable. There was good decompression of the synovitis. The scope was in guided back into the suprapatellar compartment. I reduced a motorized shaver into the suprapatellar compartment. I performed a partial synovectomy. The shaver was removed. There was good decompression of the synovitis. I did take 1 more look around the entire knee, no residual debris. Instruments were now removed from the joint. The joint was infiltrated with .25% Marcaine. Steri-Strips were applied to the portal sites. Sterile dressings were applied. The patient was placed into a YOJANA hose. No tourniquet was utilized. The patient was awakened, transferred to a bed and taken to recovery stable satisfactory condition.
[2025-01-15 14:05] VITALS: RESP 16; TEMP 97
[2025-01-15] MEDS: HYDROmorphone 0.5 MG/0.5 ML SYRINGE IVP PRN (14:07)
[2025-01-15] MEDS: LACTATED RINGERS 1,000 ML IV ONE (14:30)
[2025-01-15] MEDS: MEPERIDINE 25 MG/ML SYRINGE IVP STA (14:36)
[2025-01-15] MEDS: HYDROcodone/APAP 5-325MG 1 EACH TAB PO STA (15:29)
[2025-01-15] MEDS: fentaNYL (PF) 50 MCG/ML 2 ML AMP IVP PRN (15:54)
[2025-01-15 16:20] VITALS: BP 121/83; PULSE 82
== END 2025-01-15 16:46 | disposition home or self-care (01) ==
LOC: OR 11:35
PROVIDERS: ATTEND Orthopaedic Surgery
DX: S83.241A Other tear of medial meniscus, current injury, right knee, initial encounter (principal); S83.281A Other tear of lateral meniscus, current injury, right knee, initial encounter; M94.261 Chondromalacia, right knee; M65.861 Other synovitis and tenosynovitis, right lower leg; I11.0 Hypertensive heart disease with heart failure; I50.32 Chronic diastolic (congestive) heart failure; I25.10 Atherosclerotic heart disease of native coronary artery without angina pectoris; Z95.5 Presence of coronary angioplasty implant and graft; E78.5 Hyperlipidemia, unspecified; Z79.82 Long term (current) use of aspirin; Z79.899 Other long term (current) drug therapy; Z91.148 Patient's other noncompliance with medication regimen for other reason; X58.XXXA Exposure to other specified factors, initial encounter
CPT/HCPCS: 29880; 29876; J1100; J2405; J3010; J1171; J0665; J2175; 81025

== ENCOUNTER → 2025-03-24 | Outpatient (CLI) | payer BC ==
[2025-03-24 19:56] LABS: Urine Alcohol Negative (Negative); Urine Barbiturate Negative (Negative); Urine Cocaine Negative (Negative); Urine Methadone Negative (Negative); Urine Opiates Negative (Negative); Urine Phencyclidine Negative (Negative)
[2025-03-24 20:10] LABS: ALT 25 U/L (8-44); AST 27 U/L (13-35); Albumin 4.3 g/dL (3.8-4.9); Albumin/Globulin Ratio 1.79 Ratio (1.60-3.17); Alkaline Phosphatase 90 U/L (41-126); BUN/Creat Ratio 11.25 Ratio (12.00-20.00); Calcium 9.6 mg/dL (8.7-10.3); Carbon Dioxide 27.1 mmol/L (21.6-31.8); Chloride 98 mmol/L (96-109); Chol/HDL Ratio 5.07 Ratio; Globulin 2.4 g/dL (1.6-3.3); Glucose 97 mg/dL (70-110); LDL Cholesterol,Calculated 161.1 mg/dL (0.0-131.0); Potassium 4.8 mmol/L (3.5-5.5); Sodium 136 mmol/L (135-145); T4, Free (Free Thyroxine) 0.84 ng/dL (0.80-1.80); Total Bilirubin 0.4 mg/dL (0.3-1.2); Total Protein 6.7 g/dL (6.2-8.2)
[2025-03-24 21:00] LABS: Basophils # (A) 0.03 X 10*3/uL (0.00-0.10); Basophils % (A) 0.5 %; Eosinophils # (A) 0.18 X 10*3/uL (0.04-0.35); HCT 42.8 % (37.2-46.3); HGB 14.1 g/dL (12.0-15.0); Lymphocytes # (A) 1.18 X 10*3/uL (0.90-5.00); Lymphocytes % (A) 19.7 %; MCH 31.4 pg (27.0-32.0); MCHC 32.9 g/dL (32.0-37.0); MCV 95.3 FL (80.0-97.0); Mean Platelet Volume 9.1 FL (9.5-12.2); Monocytes # (A) 0.42 X 10*3/uL (0.20-1.00); NRBC Per 100 WBC 0 X 10*3/uL (0.00-0.01); Neutrophils # (A) 4.16 X 10*3/uL (1.80-7.70); Neutrophils % (A) 69.6 %; Platelet Count 352 X 10*3/uL (140-440); RBC 4.49 X 10*6/uL (4.10-5.20); RDW 11.2 % (11.5-14.5); WBC 5.98 X 10*3/uL (4.50-10.00)
== END | disposition home or self-care (01) ==
LOC: LABWHC1 15:58
PROVIDERS: ATTEND Psychiatry & Neurology Psychiatry
DX: Z51.89 Encounter for other specified aftercare (principal); T50.905A Adverse effect of unspecified drugs, medicaments and biological substances, initial encounter; E88.810 Metabolic syndrome; F21 Schizotypal disorder
CPT/HCPCS: 36415; 80053; 80061; 80306; 82306; 82607; 83036; 84439; 84443; 84481; 85025